=== PATIENT | female | born 1960 | race Caucasian/White ===

== ENCOUNTER 2024-03-23 14:00 | Outpatient (RCR) | payer MEDICARE ==
[~2024-03-23 14:00] MED LIST: AMITRIPTYLINE H50 M1 PO; ASPIRIN 81M81 MG/TA2 PO; ASPIRIN E.C. 8181 MG PO; CEPHALEXIN500 M1 PO; GLUCOPHAGE1000 MG PO; KRILL OIL 5001 EACH PO; LANTUS SOLOS100 U/ML SQ; LASIX 20MG TABL20 MG PO; LIORESAL20 MG PO; MIRALAX PA17 GM/Dose PO; MULTI VITAMINS1 TAB PO; NEURONTIN600 MG/TAB PO; NORCO 325 MG-101 TAB PO; NORCO 325 MG-51 TAB PO; PRAVACHOL80 MG PO; PRILOSEC 20MG20 MG PO; PRILOTC; PRINIVIL20 MG PO; PROBIOTIC BLEN1 EACH PO; REQUIP0.25 MG PO; RYBELSUS14 MG PO; SENNA-LAX8.6 MG; SENOKOT S 50 MG1 TAB PO; WELLBUTRIN SR150 M1 PO
[2024-03-26] MEDS ORDERED: NORCO 325 MG-51 TAB PO (16:18)
== END 2024-03-25 ==
LOC: WSPT
DX: Z48.89 Encounter for other specified surgical aftercare (principal); M25.562 Pain in left knee

== ENCOUNTER → 2024-04-25 | Outpatient (RCR) | payer MEDICARE | END | disposition home or self-care (01) | LOC: WSPT | DX: Z48.89 Encounter for other specified surgical aftercare (principal); M25.562 Pain in left knee; Z96.652 Presence of left artificial knee joint ==

== ENCOUNTER 2024-05-14 13:30 | Outpatient (RCR) | payer MEDICARE | END 2024-05-26 | disposition home or self-care (01) | LOC: WSPT | DX: Z48.89 Encounter for other specified surgical aftercare (principal); M25.562 Pain in left knee; Z96.652 Presence of left artificial knee joint ==